=== PATIENT | male | born 1995 | race Caucasian/White ===

== ENCOUNTER 2019-09-21 19:19 | Emergency (ER) | payer SELFPAY ==
[~2019-09-21] VITALS: Ht 175.3 cm; Wt 78.5 kg
[2019-09-21 19:31] VITALS: BP 128/69
--- NOTE | 2019-09-21 19:39 | NUR ---
PT CAME TO THE ED C/O L THUMB LACERATION +MINIMAL BLEEDING. 3X2. PT STATES" I HAVE A HARD TIME MOVING MY THUMB. PT AAOX4, VSS, RESPIRATIONS EVEN AND UNLABORED ON RA W/ NAD NOTED. PT CONNECTED TO THE MONITOR AND POX
[2019-09-21] MEDS ORDERED: LIDOCAINE /MPF 1% VIAL 5 ML VIAL ONE (20:04)
--- NOTE | 2019-09-21 20:39 | NUR ---
Dr Surya RIVERA.
[2019-09-21] MEDS ORDERED: TDAP [DIPH/PERTUSSIS/TET] 0.5 ML VIAL IM ONE (21:00)
[2019-09-21] MEDS: TDAP [DIPH/PERTUSSIS/TET] 0.5 ML VIAL IM ONE (21:07)
--- NOTE | 2019-09-21 21:11 | NUR ---
MIGUEL BAR AT BEDSIDE
--- NOTE | 2019-09-21 21:49 | NUR ---
Patient discharged to home in stable condition. Written and verbal after care instructions given. Patient verbalizes understanding of instruction.
== END 2019-09-21 21:49 | disposition home or self-care (01) ==
LOC: ER 19:25
DX: S61.012A Laceration without foreign body of left thumb without damage to nail, initial encounter (principal); W26.0XXA Contact with knife, initial encounter; Y93.89 Activity, other specified; Y92.89 Other specified places as the place of occurrence of the external cause; Y99.8 Other external cause status
CPT/HCPCS: 12002; 73140; 90471; 90715; 99283; A6403; J3490